=== PATIENT | male | born 1995 | race African-American/Black ===

== ENCOUNTER 2022-09-14 11:23 | Emergency (ER) | payer OTHER ==
[2022-09-14 11:33] VITALS: BP 129/80; PULSE 84; RESP 18; TEMP 98.2; BMI 22.6
[2022-09-14] MEDS ORDERED: IBUPROFEN 400 MG TABLET (FP) PO ONE ×2 (12:14→12:17)
== END 2022-09-14 13:15 | disposition home or self-care (01) ==
LOC: JERFT 11:23 → JER 11:23 → JERFT 13:15
DX: M54.50 Low back pain, unspecified (principal); M25.552 Pain in left hip; M79.652 Pain in left thigh; M25.531 Pain in right wrist; Y04.8XXA Assault by other bodily force, initial encounter
CPT/HCPCS: 72100-TC-FY; 73110-TC-RT-FY; 73130-TC-RT-FY; 73502-TC-LT-FY; 73552-TC-LT-FY; 99284-25